=== PATIENT | female | born 1970 | race Caucasian/White ===

== ENCOUNTER → 2024-05-14 14:57 | Outpatient (REF) | payer BC, SELFPAY | LOC: HWWDC 14:57 | PROVIDERS: ATTENDING PHYSICIAN Family Medicine | DX: Z12.31 Encounter for screening mammogram for malignant neoplasm of breast (principal) | CPT/HCPCS: 77063; 77067 ==

== ENCOUNTER → 2024-05-21 06:47 | Day surgery (SDC) | payer BC, SELFPAY | LOC: GI 06:47 | PROVIDERS: ATTENDING PHYSICIAN Internal Medicine | DX: Z12.11 Encounter for screening for malignant neoplasm of colon (principal); K64.8 Other hemorrhoids; K58.9 Irritable bowel syndrome, unspecified; K57.30 Diverticulosis of large intestine without perforation or abscess without bleeding; K62.89 Other specified diseases of anus and rectum | CPT/HCPCS: 45380; 88305 ==